=== PATIENT | male | born 1950 | race Caucasian/White ===

== ENCOUNTER 2018-09-28 15:58 | Emergency (ER) | payer MEDICARE, OTHER ==
[~2018-09-28] VITALS: Ht 188 cm; Wt 133.8 kg
[~2018-09-28 15:58] MED LIST: COZAAR 25 MG TA25 M2 PO; FISH OIL 1,001000 M2 PO; FLOMAX0.4 MG PO; MULTIPLE VITAM1 EAC2 PO; TYLENOL PM EX-1 EACH PO; VITAMINC500 PO
[2018-09-28 16:14] VITALS: BP 168/88
[2018-09-28 16:32] LABS: ABSOLUTE EOSINOPHILS 0.1 thou/uL (0.0-0.7); ABSOLUTE LYMPHOCYTES 1.6 thou/uL (0.8-5.3); ABSOLUTE MONOCYTES 0.7 thou/uL (0.0-1.2); ABSOLUTE NEUTROPHILS 4.1 thou/uL (1.6-8.1); BASOPHILS 0.8 %; EOSINOPHILS 1.1 %; HEMATOCRIT 44.8 % (42.0-52.0); HEMOGLOBIN 15.4 gm/dL (14.0-18.0); LYMPHOCYTES 24.5 %; MCH 30.2 pg (26.0-34.0); MCHC 34.4 g/dL (28.0-37.0); MCV 87.6 fL (80.0-100.0); MONOCYTES 10.4 %; NUCLEATED RBCS 0 /100WBC; PLATELET COUNT* 175 thou/uL (150-400); POLYS 63.2 %; RBC 5.12 mil/uL (4.50-6.00); RDW-CV 14.2 % (10.5-14.5); WBC 6.5 thou/uL (4.0-11.0)
[2018-09-28 16:42] LABS: PROTIME 20.8 Seconds (9.20-11.50)
[2018-09-28] MEDS ORDERED: COUMADIN 5 MG TA5 M1 PO (16:50)
[2018-09-28] MEDS ORDERED: COUMADIN7.5 MG PO (16:52)
== END 2018-09-28 16:53 | disposition home or self-care (01) ==
LOC: M.ERS 15:58
PROVIDERS: Nurse Practitioner Family
DX: S70.12XA Contusion of left thigh, initial encounter (principal); I10 Essential (primary) hypertension; Z85.51 Personal history of malignant neoplasm of bladder; Z96.652 Presence of left artificial knee joint; Z88.1 Allergy status to other antibiotic agents; Z96.643 Presence of artificial hip joint, bilateral; W22.8XXA Striking against or struck by other objects, initial encounter; Y93.89 Activity, other specified; Y92.89 Other specified places as the place of occurrence of the external cause; Y99.8 Other external cause status